=== PATIENT | male | born 1950 | race Caucasian/White ===

== ENCOUNTER 2018-01-09 09:31 | Emergency (ER) | payer OTHER, MEDICAID ==
[~2018-01-09] VITALS: Ht 180.3 cm; Wt 87.0 kg
[2018-01-09 09:46] VITALS: BP 129/82
== END 2018-01-09 14:30 | disposition left against medical advice (07) ==
LOC: ER 09:31
DX: Z53.21 Procedure and treatment not carried out due to patient leaving prior to being seen by health care provider (principal); E78.00 Pure hypercholesterolemia, unspecified; I10 Essential (primary) hypertension; M10.9 Gout, unspecified